=== PATIENT | male | born 1990 | race Hispanic/Latino ===

== ENCOUNTER 2023-04-15 17:47 | Emergency (ER) | payer SELFPAY ==
[~2023-04-15] VITALS: Ht 172.7 cm; Wt 107.8 kg
[2023-04-15 18:01] VITALS: BP 137/76
[2023-04-15 18:22] VITALS: BP 112/67
[2023-04-15 18:25] LABS: BASO% 0.4 % (0-3); EOS% 3.8 % (0-8); HEMATOCRIT 39.3 % (39.0-50.0); HEMOGLOBIN 12.4 g/dl (14.0-18.0); IMMATURE GRANULOCYTES 0.2 % (0.0-5.0); LYMPH% 46.1 % (15-41); MEAN CELL VOLUME 85.8 fL CALC (80.0-100.0); MEAN CORPUSCULAR HGB 27.1 pG CALC (26.0-32.0); MEAN CORPUSCULAR HGB CONC 31.6 g/dL CAL (32.0-36.0); MONO% 6.9 % (2-13); NEUT# 4.43 thou/uL (1.82-7.42); NEUT% 42.6 % (42-76); RED BLOOD COUNT 4.58 mill/uL (4.70-6.10); RED CELL DISTRI WIDTH 13.2 % (11.5-15.5)
[2023-04-15 18:31] VITALS: BP 110/65
[2023-04-15 18:46] LABS: ALBUMIN 4.2 g/dL (3.2-5.0); ALKALINE PHOSPHATASE 58 u/l (38-126); AMYLASE 88 u/l (30-110); ANION GAP 14 (6-22 (CALC)); BILIRUBIN, TOTAL 0.4 mg/dL (0.2-1.3); BUN 18 mg/dL (9-20); BUN/CREATININE RATIO 20 (12-20 (CALC)); CARBON DIOXIDE 22 mmol/l (22-30); CHLORIDE 107 mmol/l (95-108); CREATININE 0.9 mg/dL (0.7-1.3); GFR FOR AFR.AMER. > 60 ML/MIN (>=60 (CALC)); GFR OTHER RACES > 60 ML/MIN (>=60 (CALC)); LIPASE 359 u/l (23-300); POTASSIUM 3.9 mmol/l (3.5-5.1); SGOT/AST 28 u/l (17-59); SODIUM 140 mmol/l (137-146); TOTAL PROTEIN 7.2 g/dL (6.3-8.2)
[2023-04-15 19:31] VITALS: BP 112/63
[2023-04-15] MEDS ORDERED: NAPROXEN500 MG PO (20:10)
[2023-04-15 20:31] VITALS: BP 111/64
[2023-04-15 20:43] VITALS: BP 111/64
== END 2023-04-15 20:43 | disposition home or self-care (01) | DRG 556 ==
LOC: ED 17:47
PROVIDERS: Emergency Medicine
DX: M79.10 Myalgia, unspecified site (principal); K76.0 Fatty (change of) liver, not elsewhere classified; K21.9 Gastro-esophageal reflux disease without esophagitis; Z20.822 Contact with and (suspected) exposure to COVID-19